=== PATIENT | female | born 2005 | race Caucasian/White ===

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

== ENCOUNTER → 2024-12-31 | Outpatient (CLI) | payer SELFPAY ==
[2024-12-31 14:12] LABS: Absolute Neutrophil Count 5.3 X10^3/uL (2.0-7.7); Basophil# 0.04 X10^3/uL; Basophil% 0.5 % (0-1); Eosinophil# 0.15 X10^3/uL; Eosinophils% 1.9 % (0-5); Hematocrit 42.8 % (37-47); Hemoglobin 14.2 g/dL (12.0-15.0); Lymphocyte % 21.8 % (19-41); Mean Corp Hgb Conc 33.2 g/dL (32-36); Mean Corpuscular Hgb 30.2 pg (27.0-32.0); Mean Corpuscular Volume 91.1 fL (81-99); Mean Platelet Vol. 11.4 fl (6.2-12.0); Monocyte# 0.61 X10^3/uL; Monocyte% 7.8 % (0-10); NRBC Flagged by Analyzer 0 % (0-5); Neutrophil # 5.29 X10^3/uL (2.7-7.7); Neutrophil % 67.7 % (47-70); Platelet Count 360 K/mm3 (150-450); RBC Distribution Width CV 12.2 % (11.6-14.6); White Blood Count 7.8 K/mm3 (4.4-11.0)
[2025-01-01 05:13] LABS: ALB/GLOB Ratio 1.8 RATIO (0.9-2.4); AST(SGOT) 31 U/L (<=31); Alanine Aminotransfer ALT/SGPT 33 U/L (<=34); Albumin, Serum 4.6 g/dL (3.5-5.0); Alkaline Phosphatase 67 U/L (35-104); Anion Gap 12 (5-15); BUN 13 mg/dL (4-19); Calcium 9.8 mg/dL (7.6-11.0); Carbon Dioxide 24.1 mmol/L (22.0-29.0); Chloride 103 mmol/L (96-108); Creatinine, Serum 0.9 mg/dL (0.6-1.0); EST Glomerular Filtration Rate 99 (>60); Globulin 2.6 g/dL (2.2-4.2); Glucose 87 mg/dL (70-99); Iron 78 ug/dL (50-170); Magnesium 2.1 mg/dL (1.5-2.2); Potassium 4.1 mmol/L (3.3-5.1); Protein, Total 7.2 g/dL (5.9-8.4); Sodium Level 139 mmol/L (133-145); Total Bilirubin 0.34 mg/dL (0.00-1.30)
[2025-01-01 05:21] LABS: Ferritin 16 ng/mL (22-378); Folates, Serum 9.66 ng/mL (4.60-34.80); Free T3 2.8 pg/mL (2.18-3.98)
[2025-01-02 04:31] LABS: Vitamin B12 654 pg/mL (211-911); Vitamin D,25 Hydroxy 21.8 ng/mL (29.95-100.01)
[2025-01-03 22:06] LABS: Anti-Thyroglobulin AB < 1.0 IU/mL (0.0-0.9); EBV Acute VCA IgM < 36.0 U/mL (0.0-35.9); EBV Nuclear Antigen IgG < 18.0 U/mL (0.0-17.9); EBV-VCA IgG < 18.0 U/mL (0.0-17.9); Thyroglobulin, Serum Qt. 4.2 ng/mL (1.5-38.5); Thyroid Peroxidase AB 11 IU/mL (0-34)
== END | disposition home or self-care (01) ==
LOC: LABSPEC 12:41
PROVIDERS: Referring Provider Nurse Practitioner Family; Visit Provider Nurse Practitioner Family
DX: R06.00 Dyspnea, unspecified (principal); R53.83 Other fatigue; F32.A Depression, unspecified; F41.9 Anxiety disorder, unspecified; R45.4 Irritability and anger; R51.9 Headache, unspecified
CPT/HCPCS: 80053; 82306; 82607; 82728; 82746; 83540; 83735; 84432; 84439; 84443; 84481; 85025; 86376; 86664; 86665; 86800